=== PATIENT | female | born 1995 | race Caucasian/White ===

== ENCOUNTER 2017-03-08 00:37 | Emergency (ER) | payer OTHER ==
[~2017-03-08] VITALS: Ht 160 cm; Wt 70.0 kg
[2017-03-08] MEDS ORDERED: ALBU17IN2 INH (01:01)
[2017-03-08] MEDS ORDERED: SPRI28TA PO (01:01)
[2017-03-08] MEDS ORDERED: MORPHINE 4 MG/ML 1ML SYRINGE IV PRN (02:15)
[2017-03-08] MEDS ORDERED: ONDANSETRON 4MG/2ML VIAL (J2405) IV ONE (02:15)
[2017-03-08 02:30] LABS: BASO # 0.1 10^3/uL (0.0-0.2); BASO % 0.5 % (0.0-1.0); EOS # 0.6 10^3/uL (0.0-0.50); EOS % 5.4 % (0.0-3.0); IMMATURE GRANULOCYTE % 0.5 % (0-0); LYMPH # 1.8 10^3/uL (1.5-6.5); MEAN CORPUSCULAR HEMOGLOBIN 27.5 pg (27.0-33.0); MEAN CORPUSCULAR HGB CONC 33.5 g/dl (32.0-36.5); MONO # 0.7 10^3/uL (0.0-0.8); MONO % 6.7 % (0.0-5.0); NEUTROPHILS # 7.9 10^3/uL (1.8-7.7); NEUTROPHILS % 70.9 % (36.0-66.0); PLATELET COUNT, AUTOMATED 276 10^3/uL (150-450); RED CELL DISTRIBUTION WIDTH 13.6 % (11.5-14.5); WHITE BLOOD COUNT 11.1 10^3/uL (4.0-10.0)
[2017-03-08 02:45] LABS: CONTROL LINE HCG INT CTR LINE PRESENT
[2017-03-08 02:51] LABS: ANION GAP 8 MEQ/L (8-16); BLOOD UREA NITROGEN 13 MG/DL (7-18); CALCIUM LEVEL 8.9 MG/DL (8.5-10.1); CARBON DIOXIDE LEVEL 25 MEQ/L (21-32); CHLORIDE LEVEL 106 MEQ/L (98-107); CREATININE FOR GFR 0.76 MG/DL (0.55-1.02); GLOMERULAR FILTRATION RATE > 60.0 (>60); GLUCOSE, FASTING 109 MG/DL (70-105); POTASSIUM SERUM 3.6 MEQ/L (3.5-5.1); SODIUM LEVEL 139 MEQ/L (136-145)
--- NOTE | 2017-03-08 04:20 | REPUSA ---
CLINICAL HISTORY: Pelvic pain. TECHNIQUE: Realtime sonographic images were obtained in multiple projections via TV approach. COMMENTS: The uterus is anteverted measuring 9.4x4.6x6 cm. The endometrial echo pattern is within normal limits measuring 6.5 mm. There is no evidence of free fluid within the pelvic cul-de-sac. The right ovary measures 4.9x2.9x3.7 cm with an involuting cyst measuring 2.6 cm and the left ovary m easures 2.9x2.5x1.9 cm. Both ovaries are free of solid mass. There is no evidence for abnormal vascularity. Moderate amount of free fluid in the posterior aspect of the pelvic cul-de-sac. IMPRESSION: Involuting cyst of the right ovary. Moderate amount of free fluid in the pelvic cul-de-sac. Thank you for your kind referral of this patient.
[2017-03-08] MEDS ORDERED: NORCO 5/325MG TABLET (BULK FOR ED) PO ONE (04:45)
[2017-03-08 05:06] VITALS: BP 138/72
--- NOTE | 2017-03-08 08:36 | REP ---
Supine abdomen single AP view: The bowel gas pattern is normal. No calcifications. Skeletal structures and soft tissues are otherwise unremarkable. No free air is identified, however, an upright view or left decubitus view or CT would be more sensitive for free intraperitoneal air. Signed by John Hyatt MD 03/08/2017 08:27 A
== END 2017-03-08 05:08 | disposition home or self-care (01) ==
LOC: M ED 00:37
DX: N83.201 Unspecified ovarian cyst, right side (principal)
CPT/HCPCS: 74000; 76830; 76856; 80048; 84703; 85025; 86850; 86900; 86901; 87210; 87491; 87591; 93976; 96374; 96375; 99283; J2405

== ENCOUNTER 2018-09-01 10:42 | Emergency (ER) | payer OTHER ==
[~2018-09-01] VITALS: Ht 157.5 cm; Wt 63.6 kg
[~2018-09-01 10:42] MED LIST: ALBU17IN2 INH; SPRI28TA PO
[2018-09-01] MEDS ORDERED: NS 1,000 ML IV ONE (11:00)
[2018-09-01] MEDS ORDERED: ONDANSETRON 4MG/2ML VIAL (J2405) IV ONE (11:00)
[2018-09-01] MEDS ORDERED: KETOROLAC 30 MG/ML VIAL (J1885) IV ONE (11:00)
[2018-09-01 11:39] LABS: BASO # 0.1 10^3/uL (0.0-0.2); BASO % 0.9 % (0.0-1.0); EOS # 0.3 10^3/uL (0.0-0.50); EOS % 5.2 % (0.0-3.0); HEMATOCRIT 41.2 % (36.0-47.0); HEMOGLOBIN 13.6 g/dl (12.0-15.5); LYMPH # 1.3 10^3/uL (1.5-6.5); LYMPH % 19.9 % (24.0-44.0); MEAN CORPUSCULAR HEMOGLOBIN 28.5 pg (27.0-33.0); MEAN CORPUSCULAR VOLUME 86.2 fl (80.0-96.0); MONO # 0.5 10^3/uL (0.0-0.8); MONO % 7.4 % (0.0-5.0); NEUTROPHILS # 4.2 10^3/uL (1.8-7.7); NEUTROPHILS % 66.3 % (36.0-66.0); PLATELET COUNT, AUTOMATED 327 10^3/uL (150-450); RED BLOOD COUNT 4.78 10^6/uL (4.00-5.40); WHITE BLOOD COUNT 6.4 10^3/uL (4.0-10.0)
[2018-09-01 12:06] LABS: ALBUMIN 3.9 GM/DL (3.2-5.2); ALT/SGPT 16 U/L (12-78); AMYLASE 39 U/L (25-115); BILIRUBIN,DIRECT 0.1 MG/DL (0.0-0.2); BILIRUBIN,TOTAL 0.6 MG/DL (0.2-1.0); BLOOD UREA NITROGEN 16 MG/DL (7-18); CARBON DIOXIDE LEVEL 26 MEQ/L (21-32); CHLORIDE LEVEL 108 MEQ/L (98-107); CREATININE FOR GFR 0.67 MG/DL (0.55-1.30); GLOMERULAR FILTRATION RATE > 60.0 (>60); GLUCOSE, FASTING 94 MG/DL (70-100); LIPASE 118 U/L (73-393); POTASSIUM SERUM 4.3 MEQ/L (3.5-5.1); SODIUM LEVEL 140 MEQ/L (136-145); TOTAL PROTEIN 7.7 GM/DL (6.4-8.2)
[2018-09-01] MEDS ORDERED: ISOVUE-370 76% 100ML VIAL (Q9967) As Ordered ONE (12:21)
--- NOTE | 2018-09-01 12:34 | REP ---
PELVIC ULTRASOUND: Real-time sonographic evaluation of the pelvis performed utilizing transabdominal and endovaginal technique. The bladder measures 6.0 x 2.7 x 7.6 cm. Uterus measures 9.1 x 4.2 x 6.1 cm. Endometrial thickness is 6 mm with no endometrial fluid collection. The ovaries are normal in size and echotexture, right ovary measuring 3.9 x 2.6 x 2.5 cm and left ovary 2.8 x 1.9 x 2.2 cm. There is no adnexal mass or free fluid. There is no torsion, RI right ovary 0.57 and left ovary 0.54 with duplex Doppler evaluation. IMPRESSION: Negative pelvic ultrasound. Electronically Signed by John Hines MD 09/04/2018 01:32 P
--- NOTE | 2018-09-01 13:46 | REP ---
CT ABDOMEN AND PELVIS WITH IV CONTRAST: TECHNIQUE: Axial contrast enhanced images from the lung bases to the pubic symphysis using 100 mL Isovue 370 intravenous contrast material with multiplanar reformations. Visualized lung bases are clear. The liver, spleen, adrenals, pancreas, and kidneys are normal in appearance. No hydronephrosis is seen. There is no abdominal aortic aneurysm. There is no adenopathy. There is no free air or free fluid. No bowel wall thickening is seen. The appendix is normal. No pelvic mass is seen. Urinary bladder is unremarkable. IMPRESSION: Negative CT abdomen and pelvis with no acute abnormalities identified. Electronically Signed by John Hines MD 09/04/2018 01:37 P
[2018-09-01 14:07] VITALS: BP 123/71
== END 2018-09-01 14:12 | disposition home or self-care (01) ==
LOC: M ED 10:42
DX: R10.2 Pelvic and perineal pain (principal); J45.909 Unspecified asthma, uncomplicated; Z79.899 Other long term (current) drug therapy
CPT/HCPCS: 74177; 76830; 76856; 80048; 80076; 81001; 81025; 82150; 83690; 85025; 93976; 96361; 96374; 96375; 99284; J1885; J2405; Q9967

== ENCOUNTER → 2018-12-01 | Outpatient (REF) | payer OTHER | LOC: M SFHCLERA 11:20 | PROVIDERS: ATTEND Nurse Practitioner Family | DX: J02.9 Acute pharyngitis, unspecified (principal) ==

== ENCOUNTER → 2018-12-01 | Outpatient (CLI) | payer OTHER ==
--- NOTE | 2018-12-01 14:50 | REP ---
PA and lateral chest: There are no comparisons. The lung hi are clear. The cardiac size is normal. The shaye, mediastinum, and skeletal structures are unremarkable. Impression: Negative PA and lateral chest. Electronically Signed by John Haytt MD 12/01/2018 02:43 P
== END ==
LOC: M LRY 11:42
PROVIDERS: ATTEND Nurse Practitioner Family
DX: R09.89 Other specified symptoms and signs involving the circulatory and respiratory systems (principal)
CPT/HCPCS: 71046; 87880; 94640; G0463; J7644

== ENCOUNTER 2019-03-07 04:39 | Emergency (ER) | payer OTHER ==
[~2019-03-07] VITALS: Ht 154.9 cm; Wt 62.7 kg
[~2019-03-07 04:39] MED LIST changes: -ALBU17IN2 INH; +PROV108A INH
[2019-03-07] MEDS ORDERED: DULO1CAP4 PO (05:01)
[2019-03-07] MEDS ORDERED: IBUP200T47 PO (05:01)
[2019-03-07] MEDS ORDERED: EXCETAB33 PO (05:01)
[2019-03-07] MEDS ORDERED: BENA25CA4 PO (05:01)
[2019-03-07] MEDS ORDERED: ADV250INH INH (05:01)
[2019-03-07] MEDS ORDERED: ONDANSETRON 4MG/2ML VIAL (J2405) IV ONE (06:30)
[2019-03-07] MEDS ORDERED: NS 1,000 ML IV ONE (06:30)
[2019-03-07 06:45] LABS: BASO # 0.1 10^3/uL (0.0-0.2); BASO % 0.6 % (0.0-1.0); EOS # 0.6 10^3/uL (0.0-0.5); EOS % 7.5 % (0.0-3.0); HEMATOCRIT 38.8 % (36.0-47.0); HEMOGLOBIN 12.7 g/dl (12.0-15.5); LYMPH # 1.3 10^3/uL (1.5-5.0); LYMPH % 15.8 % (24.0-44.0); MEAN CORPUSCULAR HEMOGLOBIN 29.5 pg (27.0-33.0); MEAN CORPUSCULAR HGB CONC 32.7 g/dl (32.0-36.5); MEAN CORPUSCULAR VOLUME 90.2 fl (80.0-96.0); MONO # 0.7 10^3/uL (0.0-0.8); MONO % 9.3 % (0.0-5.0); NEUTROPHILS # 5.3 10^3/uL (1.5-8.5); NEUTROPHILS % 66.5 % (36.0-66.0); PLATELET COUNT, AUTOMATED 298 10^3/uL (150-450)
[2019-03-07] MEDS ORDERED: KETOROLAC 30 MG/ML VIAL (J1885) IV ONE (07:00)
[2019-03-07 07:04] LABS: BLOOD UREA NITROGEN 17 MG/DL (7-18); CALCIUM LEVEL 9.1 MG/DL (8.5-10.1); CARBON DIOXIDE LEVEL 27 MEQ/L (21-32); CHLORIDE LEVEL 108 MEQ/L (98-107); CREATININE FOR GFR 0.72 MG/DL (0.55-1.30); GLOMERULAR FILTRATION RATE > 60.0 (>60); GLUCOSE, FASTING 98 MG/DL (70-100); SODIUM LEVEL 140 MEQ/L (136-145)
[2019-03-07 08:42] VITALS: BP 132/75
--- NOTE | 2019-03-07 08:50 | REP ---
Clinical: Pelvic pain . Technique: Transabdominal pelvic ultrasound followed by transvaginal examination for better evaluation of the endometrium and adnexa with color Doppler evaluation of the ovaries. Findings: Bladder is unremarkable and measures 8.3 x 7.7 x 4.1 cm . Heterogeneous retroflexed uterus measures 8.0 x 4.6 x 4.8 cm . The endometrial complex measures 6.4 mm thickness. No discrete uterine or endometrial abnormalities are appreciated. Bilateral ovaries are normal in appearance and vascularity without evidence for torsion. Right ovary measures 3.8 x 2.6 x 1.9 cm with a 1.4 cm presumed involuting cyst ; R I = 0.55 . Left ovary measures 3.5 x 1.9 x 1.8 cm ; R I = 0.60 . Trace pelvic free fluid likely physiologic and related to menstrual cycle . Impression: 1. Essentially normal pelvic ultrasound. 2. 1.4 cm right ovarian complex structure likely involuting cyst. However, correlation with test is recommended to exclude the remote possibility of ectopic . Electronically Signed by Mendel Shoemaker MD 03/07/2019 08:41 A
[2019-03-07] MEDS ORDERED: ONDA4TAB6 PO (08:56)
== END 2019-03-07 09:08 | disposition home or self-care (01) ==
LOC: M ED 04:39
DX: N83.202 Unspecified ovarian cyst, left side (principal); N94.6 Dysmenorrhea, unspecified; J45.909 Unspecified asthma, uncomplicated; Z88.1 Allergy status to other antibiotic agents
CPT/HCPCS: 36415; 76830; 76856; 80048; 81001; 84702; 85025; 93976; 96361; 96374; 96375; 99284; J1885; J2405